=== PATIENT | female | born 1965 | race Hispanic/Latino ===

== ENCOUNTER 2019-05-14 07:20 | Outpatient (CLI) | payer OTHER ==
--- NOTE | 2019-05-14 09:05 | CT ---
CTA Angio Head W WO Con CT brain without contrast History: G 46.1 vascular headache not elsewhere classified Comparison: CT brain 2013 Findings: CT brain performed before the intravenous ministration of contrast. Subsequently after the intravenous administration of contrast CT angiogram the head was performed. 3-D rendering provided. Similar appearance right BUN ICER aneurysm clip. No acute hemorrhage or infarct. Right craniotomy changes. Paranasal sinuses and mastoids are clear. There is a calcification within the fourth ventricle, simil ar. The vertebral arteries are codominant. Basilar artery is patent. No recurrent aneurysm of the [place]. No stenosis, thrombosis, nor aneurysm formation. Impression: 1. No [place] stenosis, thrombosis, nor recurrent aneurysm formation. 2. No acute intracranial abnormality.
[2019-05-14] MEDS ORDERED: ISOVUE-370 76%-LOCM 1 ML ONE (11:13)
== END 2019-05-14 07:21 | disposition home or self-care (01) ==
LOC: BICCT 07:20
PROVIDERS: ATTEND Psychiatry & Neurology Neurology
DX: G44.1 Vascular headache, not elsewhere classified (principal)
CPT/HCPCS: 70496

== ENCOUNTER 2019-05-26 07:36 | Outpatient (CLI) | payer OTHER ==
--- NOTE | 2019-05-26 08:44 | BD ---
BONE DENSITOMETRY: INDICATION: A 53-year-old postmenopausal osteoporosis screening. FINDINGS: Lumbar Spine: BMD (g/cm2) L1 0.762 T-Score: -2.1 L2 0.827 T-Score: -1.8 L3 0.829 T-Score: -2.3 L4 0.809 T-Score: -2.3 L1-L4 0.808 T-Score: -2.2 Femoral Neck: 0.766 T-Score: -0.7 Total Femur: 0.964 T-Score: 0.2 Impression: 1. Bone mineral density of the lumbar spine indicates osteopenia. 2. Bone mineral density of the femoral neck within normal range. TEN-YEAR FRACTURE RISK: Major osteoporotic fracture: 4.3%. Hip fracture: 0.2%. POS: ALEJANDRO
--- NOTE | 2019-05-26 15:28 | MMO ---
Bilateral MAMMO Bilat Screen [facility]. CLINICAL HISTORY: Patient is 53 years old and is seen for screening. The patient has no family history of breast cancer. The patient has no personal history of cancer. VIEWS: The views performed were: bilateral craniocaudal with tomosynthesis and bilateral mediolateral oblique with tomosynthesis. FILMS COMPARED: The present examination has been compared to a prior imaging study performed at [facility] on 01/27/2009. MAMMOGRAM FINDINGS: There are scattered fibroglandular densities. There are no suspicious masses, suspicious calcifications, or new areas of architectural distortion. IMPRESSION: THERE IS NO MAMMOGRAPHIC EVIDENCE OF MALIGNANCY. A ROUTINE FOLLOW-UP MAMMOGRAM IN 1 YEAR IS RECOMMENDED. THE RESULTS OF THIS EXAM WERE SENT TO THE PATIENT. ACR BI-RADS Category 1 - Negative MAMMOGRAPHY NOTE: 1. A negative mammogram report should not delay a biopsy if a dominant of clinically suspicious mass is present. 2. Approximately 10% to 15% of breast cancers are not detected by mammography. 3. Adenosis and dense breasts may obscure an underlying neoplasm. Reported by: JULIO CÉSAR CAMPUZANO MD Electonically Signed: [id number]
== END 2019-05-26 07:37 | disposition home or self-care (01) ==
LOC: BICMAMMO 07:36
PROVIDERS: ATTEND Family Medicine
DX: Z12.31 Encounter for screening mammogram for malignant neoplasm of breast (principal); Z13.820 Encounter for screening for osteoporosis; M85.88 Other specified disorders of bone density and structure, other site
CPT/HCPCS: 77063; 77067; 77080

== ENCOUNTER 2020-07-19 18:40 | Emergency (ER) | payer SELFPAY ==
[2020-07-19 19:19] LABS: #Lymphocytes 0.6 thou/uL (1.20-3.40); #Monocytes 0.3 thou/uL (0.11-0.59); #Neutrophils 1.1 thou/uL (1.40-6.50); %Basophils 0.1 % (0.0-1.0); %Eosinophils 2.3 % (0.0-10.0); %Lymphocytes 30.2 % (21.0-51.0); %Monocytes 14.5 % (0.0-10.0); %Neutrophils 52.9 % (42.0-75.0); Hemoglobin 12.8 g/dL (12.0-16.0); Mean Corpuscular HGB CONC 33.6 g/dL (32.0-36.0); Mean Corpuscular Hemoglobin 27.7 pg (27.0-31.0); Mean Corpuscular Volume 82.6 fL (78.0-98.0); White Blood Cell (WBC) Count 2.1 thou/uL (4.8-10.8)
[2020-07-19 19:35] LABS: ALT (SGPT) 119 U/L (8-55); AST (SGOT) 154 U/L (5-34); Albumin 4.3 g/dL (3.5-5.0); Alkaline Phosphatase 76 U/L (40-110); Anion Gap 12 mmol/L (10-20); BUN (Urea Nitrogen) 7 mg/dL (9.8-20.1); Bilirubin, Total 0.6 mg/dL (0.2-1.2); Calc. Creatinine Clearance 0 mL/min (70-130); Calcium 8.5 mg/dL (7.8-10.44); Carbon Dioxide 24 mmol/L (22-29); Chloride 100 mmol/L (98-107); Estimated GFR-MDRD Greater than 90; Globulin 2.9 g/dL (2.4-3.5); Glucose 104 mg/dL (70-105); Mean Platelet Volume 9.6 fL (7.4-10.4); Platelet Count 87 thou/uL (130-400); Platelet Morphology Comment Appears Decreased; Potassium 3.3 mmol/L (3.5-5.1); Protein, Total 7.2 g/dL (6.0-8.3); RBC Morphology Normal; Sodium 133 mmol/L (136-145)
[2020-07-19] MEDS ORDERED: Morphine 4 MG/ML VIAL ONE (20:04)
[2020-07-19] MEDS ORDERED: Ondansetron PF 4 MG/2 ML Vial ONE (20:04)
--- NOTE | 2020-07-19 20:11 | CT ---
Exam: Abdomen CT without contrast Pelvic CT without contrast HISTORY: Flank pain, bilateral COMPARISON: None FINDINGS: Abdomen CT: Lung bases:Clear Heart size: Normal heart size. No significant pericardial fluid Aorta: Normal caliber. No periaortic fat stranding Solid organs: Lack of IV contrast limits evaluation. No signal abnormality Lymph nodes: No gastrohepatic, retrocrural or periportal lymphadenopathy Gallbladder: Surgically absent Mesentery: No mass, lymphadenopathy, free air or free fluid Kidneys: Bilaterally no obstructive uropathy. Alimentary canal: Limited evaluation by the lack of oral contrast. No bowel obstruction. Normal ileoc ecal junction. Scattered fecal material in a nondistended, nondilated colon. Occasional tic. No diverticulitis. Normal appendix. CT PELVIS: No mass, adenopathy, free air or free fluid. Surgically absent uterus Urinary bladder: Unremarkable. Lymph nodes: Mildly enlarged bilateral inguinal lymph nodes, nonspecific. Mild induration of the subc utaneous fat in the left and right inguinal region. Largest lymph node is in the right inguinal region measuring 2.8 x 0.9 cm Osseous structures: No lytic or blastic lesions IMPRESSION: 1. Normal caliber appendix 2. No evidence of obstructive uropathy 2. Nonspecific bilateral inguinal lymphadenopathy.
--- NOTE | 2020-07-19 20:52 | RAD ---
Exam: Chest one view HISTORY:Chest pain Comparison: 04/27/2010 FINDINGS: Cardiac silhouette: Normal Aorta: Unremarkable Pulmonary vessels: Normal Costophrenic angles: Clear LUNGS: No masses or consolidation. Pneumothorax: None Osseous abnormalities: None IMPRESSION: No acute cardiopulmonary process.
[2020-07-19 20:53] LABS: Bacteria/HPF None Seen HPF (None Seen); Bilirubin Negative (Negative); Blood, Urine 1+ (Negative); Clarity Clear (Clear); Glucose, Urine (Dipstick) Normal (Negative); Ketone, Urine 20 mg/dL (Negative); Leukocyte Negative Leu/uL (Negative); Nitrite Negative (Negative); Protein, Urine (Dipstick) 30 mg/dL (Neg-Trace); Specific Gravity, Urine 1.018 (1.002-1.036); Squamous Epithelial 0-3 HPF (0-3); WBC/HPF 0-3 HPF (0-3)
[2020-07-19] MEDS ORDERED: Aspirin Chewable 81 MG TAB ONE (22:00)
== END 2020-07-20 00:26 | disposition home or self-care (01) ==
LOC: ERS 18:40
DX: R07.89 Other chest pain (principal); R10.9 Unspecified abdominal pain
CPT/HCPCS: 36415; 51701; 71045; 74176; 80053; 81003; 81015; 82550; 83605; 83690; 84484; 85025; 87040; 87086; 93005; 96361; 96374; 96375; J2270; J2405